=== PATIENT | male | born 1970 | race Caucasian/White ===

== ENCOUNTER 2019-09-06 06:00 | Outpatient (RCR) | payer OTHER, SELFPAY | END 2019-10-03 00:01 | LOC: SPT 06:00 | PROVIDERS: Family Provider Family Medicine; Visit Provider Orthopaedic Surgery | DX: Z47.89 Encounter for other orthopedic aftercare (principal) | CPT/HCPCS: 97110 ×2; 97140; 97161; G0283 ==

== ENCOUNTER 2019-10-04 10:09 | Outpatient (RCR) | payer OTHER, SELFPAY | END 2019-11-03 23:59 | disposition home or self-care (01) | LOC: SPT 10:09 | PROVIDERS: Family Provider Family Medicine; PCP Family Medicine; Visit Provider Orthopaedic Surgery | DX: S42.251D Displaced fracture of greater tuberosity of right humerus, subsequent encounter for fracture with routine healing (principal); X58.XXXD Exposure to other specified factors, subsequent encounter ==

== ENCOUNTER → 2020-09-23 15:55 | Outpatient (BNVA) | payer OTHER, SELFPAY | PROVIDERS: Family Provider Family Medicine; PCP Family Medicine; Visit Provider Nurse Practitioner Family | DX: Z20.828 Contact with and (suspected) exposure to other viral communicable diseases (principal) | CPT/HCPCS: 87635 ==

== ENCOUNTER → 2020-10-10 11:43 | Outpatient (BNVA) | payer OTHER, SELFPAY | PROVIDERS: Family Provider Family Medicine; PCP Family Medicine; Visit Provider Nurse Practitioner Family | DX: Z20.828 Contact with and (suspected) exposure to other viral communicable diseases (principal) | CPT/HCPCS: 87635 ==

== ENCOUNTER → 2020-10-18 09:32 | Outpatient (BNVA) | payer OTHER, SELFPAY | PROVIDERS: Family Provider Family Medicine; PCP Family Medicine; Visit Provider Family Medicine | DX: G47.00 Insomnia, unspecified (principal); R10.13 Epigastric pain; Z13.6 Encounter for screening for cardiovascular disorders | CPT/HCPCS: 80053; 80061; 84153; 85025 ==

== ENCOUNTER → 2020-11-15 08:09 | Outpatient (BNVA) | payer OTHER, SELFPAY | PROVIDERS: Family Provider Family Medicine; PCP Family Medicine; Visit Provider Family Medicine | DX: D53.9 Nutritional anemia, unspecified (principal); K21.9 Gastro-esophageal reflux disease without esophagitis; F51.04 Psychophysiologic insomnia; F17.229 Nicotine dependence, chewing tobacco, with unspecified nicotine-induced disorders | CPT/HCPCS: 82607 ==

== ENCOUNTER 2021-01-07 15:05 | Outpatient (CLI) | payer OTHER, SELFPAY ==
--- NOTE | 2021-01-07 15:23 | XR_ITS ---
WS: [id number] LEFT SHOULDER: 3 VIEW(S) TECHNIQUE: Internal and external rotation with Y view. HISTORY: acute left shoulder pain COMPARISON: None available. Osseous density along the posterior lateral humeral head may be from an old fracture or area of osteo necrosis. Glenohumeral and AC joints are unremarkable. Visualized LEFT upper lung is clear. XR/XR shoulder LT min 2V* [id number] IMPRESSION: Osseous density measuring 17 mm over the posterior lateral humeral head. Probab ly from an old injury.
== END 2021-01-07 15:06 | disposition home or self-care (01) ==
LOC: RADWPI 15:12
PROVIDERS: PCP Family Medicine; Visit Provider Family Medicine
DX: M25.512 Pain in left shoulder (principal)
CPT/HCPCS: 73030

== ENCOUNTER → 2021-02-14 08:03 | Outpatient (BNVA) | payer OTHER, SELFPAY | PROVIDERS: PCP Family Medicine; Visit Provider Orthopaedic Surgery | DX: S42.252A Displaced fracture of greater tuberosity of left humerus, initial encounter for closed fracture (principal); X58.XXXA Exposure to other specified factors, initial encounter | CPT/HCPCS: 73030 ==

== ENCOUNTER → 2021-05-01 08:24 | Outpatient (BNVA) | payer SELFPAY | PROVIDERS: PCP Family Medicine; Visit Provider Family Medicine | DX: R53.83 Other fatigue (principal); R68.82 Decreased libido | CPT/HCPCS: 84403; 84443 ==

== ENCOUNTER → 2021-08-20 11:40 | Outpatient (BNVA) | payer OTHER, SELFPAY | PROVIDERS: PCP Family Medicine; Visit Provider Orthopaedic Surgery | DX: S42.252D Displaced fracture of greater tuberosity of left humerus, subsequent encounter for fracture with routine healing (principal) | CPT/HCPCS: 73030 ==

== ENCOUNTER → 2021-10-11 12:12 | Outpatient (BNVA) | payer OTHER, SELFPAY | PROVIDERS: PCP Family Medicine; Visit Provider Family Medicine | DX: R05.9 Cough, unspecified (principal) | CPT/HCPCS: 87400; 87635 ==

== ENCOUNTER → 2021-10-21 10:28 | Outpatient (BNVA) | payer SELFPAY | PROVIDERS: PCP Family Medicine; Visit Provider Family Medicine | DX: Z13.6 Encounter for screening for cardiovascular disorders (principal); R10.13 Epigastric pain; R35.1 Nocturia; G25.0 Essential tremor; F41.9 Anxiety disorder, unspecified | CPT/HCPCS: 80053; 80061; 84153; 85025 ==

== ENCOUNTER 2022-01-08 11:06 | Day surgery (SDC) | payer SELFPAY ==
[2022-01-07 13:07] VITALS: BMI 25.1
[2022-01-08] VITALS (12 sets, daily range): BP systolic 113–146; BP diastolic 86–102; PULSE 53–77; RESP 14–20; TEMP 36.1–36.7; O2SAT 93–98
--- NOTE | 2022-01-08 11:43 | ANES.PREANE2 ---
Pre-Anesthetic Assessment Height/Weight: Height 1.8 m Weight 81.647 kg Preop Diagnosis: Labral tear left shoulder Operation Date: 01/08/22 13:10 Proposed Procedures p Diagnostic Shoulder Arthroscopy 59092/[id number](Left) - Mani Mauricio MD s SLAP Repair(Left) - Mani Mauricio MD Familial anesthetic complications: None Was Beta Tyrone taken within 24 hours: Yes Was Clonidine taken within 24 hours: N/A Last intake: 01/07/22 Social Tobacco (Chewing ) Exam alert, oriented x 3, clear to auscultation bilaterally and regular rate & rhythm Airway Submandibular: within normal limits Cervical ROM: within normal limits Mallampati: Class II Dentition: full Pulmonary None reported CV/HEM Anemia and Deep Vein Thrombosis Renal stones Hepatic None reported GI Gastroesophageal Reflux Disease Diverticulitis Metabolic None reported Musc/skel Osteoarthritis/DJD left arm pain Neuropsych Essential tremor Anesthetic Plan ASA status: 2 Anesthesia: General and Regional (specify below) (Brachial blexus block ) Other: We discussed risk and benefits of nerve block for post op pain control including management of pain and titration of pain medications as signs/symptoms of nerve block wearing off begin to appear and/or prior bed. We discussed risk of failed nerve block, vascular injury or other vital structure injury, abscess/infection, LAST, and nerve injury. We discussed risk and benefits of general anesthesia including PONV, sore throat (sometimes severe), corneal abrasion, positioning and peripheral nerve injuries, life threatening allergic reaction, post operative ICU admission requiring prolonged intubation, stroke, heart attack, , and rare incidences of recall. Patient consents to proceed with general anesthesia. Risk of > 500 ml blood loss (7ml/kg in children): No Medications/Allergies Home Medications Medication Instructions Recorded Confirmed Last Taken Type fexofenadine 180 mg tablet 180 mg PO DAILY 09/23/20 01/08/22 01/08/22 History (Chantel Allergy) apixaban 2.5 mg tablet (Eliquis) 2.5 mg PO BID 90 Days #180 tab 08/01/21 01/07/22 01/06/22 Rx omeprazole 40 mg capsule,delayed 40 mg PO DAILY cap 10/21/21 01/08/22 01/08/22 History release propranolol 10 mg tablet 10 mg PO BID #60 tab 10/21/21 01/08/22 01/08/22 Rx mirtazapine 15 mg tablet (Remeron) 15 mg PO .po q hs #90 tab 12/11/21 01/08/22 01/07/22 Rx Allergies Allergy/AdvReac Type Severity Reaction Status Date / Time Antihistamines - Alkylamine Allergy trouble Verified 12/30/21 09:26 urinating PFS Anesthesia Medical History Anxiety Essential tremor History of blood clots 3 total - he has had a hypercoag work-up which was negative. History of diverticulitis Insomnia Renal stones Surgical History H/O hernia repair History of shoulder surgery Right Hx of resection of large bowel Family History Mother Cancer Father Hypertension Diabetes Social History Smoking and tobacco status: current every day smoker (chewing tobacco daily) smokeless tobacco Smokeless tobacco user: chewing tobacco Alcohol intake: current Alcohol intake frequency: 3 or more drinks per day Alcohol type: beer and hard liquor History of recent travel: No Data Anesthesia Cardiac Studies: No Data to Display
[2022-01-08] MEDS: acetaminophen 500 mg Tablet 1000 MG PO (12:03)
[2022-01-08] MEDS: fentaNYL 50 mcg/mL INJ 2mL 100 MCG IVP (12:10)
--- NOTE | 2022-01-08 12:23 | P.ANES_ITS ---
Anesthesia Procedures Procedure/Date: 01/08/22 Nerve Block ^: Nerve Block 1: Main Anesthesia: general anesthesia Time Out Performed: Yes (1215) Consent: requested by attending/covering physician, from patient, risks and bene fits reviewed and patient agrees to proceed Nerve block location: supraclavicular Anesthesia monitors applied: pulse oximetry, EKG, BP cuff and oxygen Nerve block position: semi sitting Anesthetic Used: bupivacaine 0.5% Amount of anesthesia used (mL): 20 Ultrasound used to: recognize landmarks, visualize and ID brachial plexus and in supraclavicular region Nerve Stimulator Used?: No Interscalene/Femoral BLK: 2 stimuplex 22 g needle used for position and inplane approach, visualize local anesthetic spread and no vascular puncture identified Injection: neg aspiration of heme Patient Tolerated Procedure: well Complications: none Additional Comments: After time out sterile prep, using sterile technique, and using real time US guidance for target selection needle was inserted with real time visualization of needle entry and real time visualization of needle advancement toward intended target. Negative aspiration. LA injected incrementally with negative aspiration every 5 cc and real time US visualization of LA spread throughout procedure. Tolerated well. Image(s) saved. Pre procedure sedation used. Total 100 mcg fentanyl, 50 mcg prior to start, 50 mcg additional after needle insertion.
[2022-01-08] MEDS: sodium chloride 0.9% 1,000 ML 30 ML IV (12:34)
--- NOTE | 2022-01-08 15:18 | P.OP_ITS ---
Operative Report Date of procedure: January 08, 2022 Pre-op diagnosis: Preop Diagnosis Labral tear left shoulder Post-op diagnosis: other Post-op diagnosis: Partial-thickness tear left nursemaid's tendon, type II superior labral tear Procedure done: Arthroscopic repair left rotator cuff with bio inductive implant, open left biceps tenodesis, arthroscopic left subacromial decompression. Implants: Caban and NephMirada Regeneten bioinductive implant, 2.8 mm Q fix suture anchor Pathology: none sent Surgeon: Mani Mauricio Anesthesia: General Estimated blood loss (mL): 25 Complications: None Findings: Patient's left shoulder could be flexed 150 degrees and externally rotated 60 degrees identical to the contralateral side. Within the glenohumeral joint he had a unstable attachment of the superior labrum from approximately the 10:00 to the 2 o'clock position with some degeneration as well identified in the biceps tendon at its insertion. He had no chondromalacia of his humeral head or glenoid. He had a partial-thickness articular tear of his central supraspinatus tendon approximately a centimeter and a half from anterior to posterior with approximately a centimeter tendinous retraction. When inspected from the supe rior aspect the bursal rotator cuff appeared to be intact to probing. Procedure: Mr. Barnard was taken to the operating room and given 2 g of Ancef. Initially his left shoulder was brought through range of motion with the above findings noted, identical to the contralateral side. He was positioned in the lateral position with his left arm in 15 pounds of traction. He was prepped and draped in the usual fashion. A timeout was performed. The shoulder was entered through a posterior portal 2 cm inferior and medial to the posterior corner of the acromion. The glenohumeral joint was inspected. An anterior working portal was placed in the rotator interval. A probe through that interval allowed evaluation of the superior labrum which was noted to be torn. Decision was made to proceed with the biceps tenodesis. A spinal needle was introduced percutaneously laterally through the biceps tendon. A Prolene suture was passed through the biceps and secured to aid with later identification of the tendon. Using the Caban and Nephew Werewolf probe the biceps was released from the superior labrum/the articular tear of the rotator cuff was identified. A spinal needle was introduced percutaneously into the abnormal area cuff to allow localization on the bursal aspect.\ Arthroscopy equipment was then directed into the subacromial space. An anterior lateral working portal were made. Bursal tissue was removed with the Caban and Nephew Werewolf cautery. The bursal rotator cuff was inspected and found to be intact. Some anterior coverage of the acromion was identified as well. We made the decision to proceed with a subacromial decompression to a great vascularity around the anticipated Caban and Nephew Regeneten patch. Through the lateral portal approximately 4 mm of anterior and inferior acromion were removed. A more distal lateral incision was made and through that the Caban and Nephew Regeneten patch was passed. A more superior cannula was used to pass tendon giuseppe through the anterior and posterior medial apex and anterior and posterior midportion of the patch. Through the previous lateral cannula to bone giuseppe were placed 1 anterior and a second posterior laterally. Next a 3 cm long incision was made over the anterior axillary fold. Dissection was carried down bluntly to wear the bicipital groove was palpated. With retraction on the previous placed sutures the tendon could be identified. The biceps tendon was retracted into the wound. The bicipital groove was debrided to increase vascularity. A 2.8 mm Q fix anchor was placed and passed around the tendon in a luggage tag fashion. An additional Ultrabraid suture was passed around the tendon and around the substance of the pectoralis major reinforcing the repair. The tenodesis incision was closed with deep 2-0 Vicryl and superficial 3-0 Prolene. Portals were closed with 3-0 Prolene. The patient was placed in a sling, extubated, and taken to recovery room in stable condition.
--- NOTE | 2022-01-08 15:49 | SUR.PHASEI ---
1549 Pt complained of pain but declined any pain medication in PACU. Pt also voiced complaints of a little nausea but also declined anti emetic.
[2022-01-08] MEDS: ondansetron 2 mg/ML SDV 2 mL 4 MG IVP (15:59)
[2022-01-08] MEDS: ibuprofen 800 mg tablet PO (16:20)
--- NOTE | 2022-01-08 18:49 | ANE.PACU2 ---
Inpatient post-anesthesia follow up: Airway intact: Yes Vital signs: Temperature 97.3 F Pulse Rate 68 Respiratory Rate 18 Blood Pressure 131/98 Pulse Oximetry 96 Oxygen Delivery Me thod Room Air Oxygen Flow Rate 6 Fraction of Inspir ed Oxygen Hydration adequate: Yes Nausea and vomiting: No Pain level: 1 Mental status: Baseline
--- NOTE | 2022-01-11 09:04 | W.PM.OPSUD ---
Surgery/Procedure H&P Update DATE OF PROCEDURE: January 08, 2022 DATE H&P PERFORMED: 12/30/21 H&P UPDATE INFORMATION: I have reviewed H&P completed within last 30 days PREOP DIAGNOSIS: Labral tear left shoulder PLANNED PROCEDURE: Operation Date: 01/08/22 13:10 Proposed Procedures p Diagnostic Shoulder Arthroscopy [id number](Left) - Mani Mauricio MD s SLAP Repair(Left) - Mani Mauricio MD
== END 2022-01-08 17:15 | disposition home or self-care (01) ==
PROVIDERS: PCP Family Medicine; Visit Provider Orthopaedic Surgery
PROC: (CPT 29805; principal; 2022-01-08 13:00)
PROC: (CPT 29807; 2022-01-08 13:00)
DX: S43.402A Unspecified sprain of left shoulder joint, initial encounter (principal); S43.432A Superior glenoid labrum lesion of left shoulder, initial encounter; X58.XXXA Exposure to other specified factors, initial encounter; M67.912 Unspecified disorder of synovium and tendon, left shoulder; Z87.891 Personal history of nicotine dependence; Z86.718 Personal history of other venous thrombosis and embolism; K21.9 Gastro-esophageal reflux disease without esophagitis; F41.9 Anxiety disorder, unspecified
CPT/HCPCS: 29826; 29827; 29828; C1713; J0690; J1100; J2405; J2704; J3010; J3490; J7030

== ENCOUNTER 2022-04-02 06:00 | Outpatient (RCR) | payer SELFPAY | END 2022-04-02 23:55 | disposition home or self-care (01) | LOC: SPT 06:00 | PROVIDERS: PCP Family Medicine; Referring Provider Orthopaedic Surgery; Visit Provider Orthopaedic Surgery | DX: Z47.89 Encounter for other orthopedic aftercare (principal); M25.512 Pain in left shoulder | CPT/HCPCS: 97161 ==

== ENCOUNTER 2022-04-03 06:00 | Outpatient (RCR) | payer SELFPAY | END 2022-05-03 23:59 | disposition home or self-care (01) | LOC: SPT 06:00 | PROVIDERS: PCP Family Medicine; Referring Provider Orthopaedic Surgery; Visit Provider Orthopaedic Surgery | DX: Z47.89 Encounter for other orthopedic aftercare (principal) | CPT/HCPCS: 97110; 97140 ==

== ENCOUNTER → 2022-04-17 10:25 | Outpatient (BNVA) | payer SELFPAY | PROVIDERS: PCP Family Medicine; Visit Provider Family Medicine | DX: D53.9 Nutritional anemia, unspecified (principal); F41.9 Anxiety disorder, unspecified | CPT/HCPCS: 82607; 85025 ==

== ENCOUNTER 2022-05-04 06:00 | Outpatient (RCR) | payer SELFPAY | END 2022-05-15 13:32 | disposition home or self-care (01) | LOC: SPT 06:00 | PROVIDERS: PCP Family Medicine; Visit Provider Orthopaedic Surgery | DX: Z47.89 Encounter for other orthopedic aftercare (principal) | CPT/HCPCS: 97032; 97110 ==

== ENCOUNTER → 2022-08-21 09:48 | Outpatient (BNVA) | payer SELFPAY | PROVIDERS: PCP Family Medicine; Visit Provider Family Medicine | DX: Z13.6 Encounter for screening for cardiovascular disorders (principal); F41.9 Anxiety disorder, unspecified; R53.83 Other fatigue; I82.409 Acute embolism and thrombosis of unspecified deep veins of unspecified lower extremity | CPT/HCPCS: 80053; 80061 ==

== ENCOUNTER 2022-11-27 10:31 | Outpatient (CLI) | payer SELFPAY ==
--- NOTE | 2022-11-27 10:40 | XR_ITS ---
WS: [id number] Exam: XR hip RT 2-3V wo/w pel* [id number] Date/Time of Exam: 11/27/2022 10:49 AM Reason For Exam: right hip pain No fracture or dislocation. The joint compartment relatively well maintained. Normal soft tissues. Fernandez rgical clips in the pelvis as well as the right inguinal region. Mild bony hypertrophy of the superio r acetabulum. XR/XR hip RT 2-3V wo/w pel* [id number] IMPRESSION: 1. No fracture or other significant finding.
== END 2022-11-27 10:32 | disposition home or self-care (01) ==
PROVIDERS: PCP Family Medicine; Visit Provider Family Medicine
DX: M25.551 Pain in right hip (principal)
CPT/HCPCS: 73502

== ENCOUNTER → 2022-12-29 08:09 | Outpatient (BNVA) | payer SELFPAY | PROVIDERS: PCP Family Medicine; Visit Provider Family Medicine | DX: K92.1 Melena (principal) | CPT/HCPCS: 85025 ==

== ENCOUNTER 2023-01-21 08:37 | Outpatient (CLI) | payer BC, SELFPAY ==
--- NOTE | 2023-01-21 08:45 | USCV_ITS ---
Bjorn Patel Age: 52 Gender: M : 1970 Exam Date: 01/21/2023 08:52 Ordering Phys: Bailee Shafer DO Technologist: Rin Bull Exam Location: [facility] [place] Indication: History of DVT in both Rt and Lt legs HISTORY: History of DVT in Rt and Lt lower extermities PROCEDURES: Venous duplex imaging was performed in only the right lower extremity. The following venous structures were evaluated: common femoral vein, profunda vein, proximal portion of the greater saphenous vein, superficial femoral vein, and the popliteal vein. In addition, the posterior tibial and peroneal trunk were evaluated. Serial compression, augmentation maneuvers, and spectral Doppler flow evaluation were performed. FINDINGS: Normal 2-D Doppler and augmentation and compressibility throughout the lower extremity venous structures. Additional imaging through the proximal calf veins also reveals no thrombus. Limited evaluation of the greater saphenous vein is patent with no thrombus. The supervision of waiting on the medial aspect of the right leg with an echogenic strand suggesting old superficial thrombophlebitis with recanalization CONCLUSIONS No evidence of DVT in the above-mentioned identifiable veins. The superficial vessel on the medial side of the right lower leg- firm and bluish, appears to be having features of old thrombophlebitis with recanalization. Dr Tj Garcia MD [facility] (Electronically Signed) Final Date: 23 January 2023 14:09 S
== END 2023-01-21 08:38 | disposition home or self-care (01) ==
PROVIDERS: PCP Family Medicine; Visit Provider Family Medicine
DX: I82.409 Acute embolism and thrombosis of unspecified deep veins of unspecified lower extremity (principal); Z86.718 Personal history of other venous thrombosis and embolism
CPT/HCPCS: 93971

== ENCOUNTER → 2023-02-25 09:11 | Outpatient (BNVA) | payer BC, SELFPAY | PROVIDERS: PCP Family Medicine; Visit Provider Nurse Practitioner Family | DX: R39.9 Unspecified symptoms and signs involving the genitourinary system (principal) | CPT/HCPCS: 81000 ==

== ENCOUNTER 2023-07-02 07:49 | Outpatient (CLI) | payer BC, SELFPAY ==
--- NOTE | 2023-07-02 08:01 | XR_ITS ---
WS: [id number] Lumbar spine, 3 views, 07/02/2023 Clinical Data: low back pain Comparison: None. Findings: No compression fractures or subluxation is seen. There is degenerative disc narrowing at L5-S1. There are anterior osteophytes at this level. The transverse processes and SI joints are normal. There are surgical clips in the inguinal regions bilaterally. Impression: Degenerative disc narrowing at L5-S1 with anterior osteophytes.
== END 2023-07-02 07:50 | disposition home or self-care (01) ==
LOC: LAB 07:51 → RAD 07:57
PROVIDERS: PCP Family Medicine; Visit Provider Family Medicine
DX: G89.29 Other chronic pain (principal); M54.41 Lumbago with sciatica, right side
CPT/HCPCS: 72100

== ENCOUNTER 2023-09-09 06:51 | Outpatient (CLI) | payer BC, SELFPAY ==
--- NOTE | 2023-09-09 07:15 | MR_ITS ---
WS: [id number] MRI LUMBAR SPINE NONCONTRAST TECHNIQUE: Sagittal T1, T2 and STIR imaging. Axial T1 and T2 imaging. CLINICAL INFORMATION: chronic right sided low back pain COMPARISON: None. FINDINGS: Mild lumbar curve. No acute compression. No high-grade central canal stenosis. L1-L2: Normal. L2-L3: Normal. L3-L4: Mild annular bulging. Mild facet arthropathy. Spinal canal and foramen are patent. L4-L5: Mild annular bulging. Mild LEFT and no significant RIGHT foraminal narrowing. Mild facet arthr opathy. Spinal canal is patent. L5-S1: Mild annular bulging with slight effacement of the ventral thecal sac. Mild to moderate bilate ral bony foraminal narrowing LEFT greater than RIGHT. Visualized pelvic bony structures: Normal. Paravertebral soft tissues: Normal. IMPRESSION: 1. Mild lumbar curve. No acute compression. No high-grade central canal stenosis. 2. Mild annular bulging L4-5 with slight effacement of the ventral thecal sac. 3. Mild to moderate bilateral L5-S1 foraminal narrowing with LEFT greater than RIGHT small foraminal protrusions. Mild to moderate facet arthropathy L3-L5. 4. Small LEFT renal cyst partially visualized 1.9 cm.
== END 2023-09-09 06:52 | disposition home or self-care (01) ==
LOC: RAD 06:51
PROVIDERS: PCP Family Medicine; Visit Provider Family Medicine
DX: M51.36 Other intervertebral disc degeneration, lumbar region (principal); M48.061 Spinal stenosis, lumbar region without neurogenic claudication; G89.29 Other chronic pain
CPT/HCPCS: 72148

== ENCOUNTER → 2023-09-28 09:05 | Outpatient (BNVA) | payer BC, SELFPAY | PROVIDERS: PCP Family Medicine; Referring Provider Family Medicine; Visit Provider Orthopaedic Surgery | DX: M48.062 Spinal stenosis, lumbar region with neurogenic claudication (principal); Z01.818 Encounter for other preprocedural examination | CPT/HCPCS: 36415; 80053; 81003; 85025 ==

== ENCOUNTER → 2023-10-26 14:35 | Outpatient (BNVA) | payer BC, SELFPAY | PROVIDERS: PCP Family Medicine; Visit Provider Family Medicine | DX: Z01.818 Encounter for other preprocedural examination (principal) | CPT/HCPCS: 80053; 81003; 85025 ==

== ENCOUNTER 2023-11-03 07:50 | Day surgery (SDC) | payer BC, SELFPAY ==
[2023-11-03] VITALS (10 sets, daily range): BP systolic 134–159; BP diastolic 88–102; PULSE 58–77; RESP 16; TEMP 36.1–37.1; O2SAT 97–100
[2023-11-03] MEDS: sodium chloride 0.9% 1,000 ML 30 ML IV (08:17)
--- NOTE | 2023-11-03 09:40 | W.PM.OPSUD ---
Surgery/Procedure H&P Update DATE OF PROCEDURE: November 03, 2023 DATE H&P PERFORMED: 10/26/23 H&P UPDATE INFORMATION: I have reviewed H&P completed within last 30 days, I have examined patient prior to procedure and No changes to prior documentation PREOP DIAGNOSIS: Lumbar stenosis with neurogenic claudication PLANNED PROCEDURE: Operation Date: 11/03/23 09:35 Proposed Procedures p Lumbar Decompression(L4/5)(Not Applicable) - Colin Goyal DO
[2023-11-03] MEDS: ceFAZolin 2,000 MG in sodium chloride 0.9% (plus) 50 ML 100 MG IV (10:05)
--- NOTE | 2023-11-03 10:05 | ANES.PREANE2 ---
Pre-Anesthetic Assessment Height/Weight: Height 1.8 m Temp Pulse Resp BP Pulse Ox O2 Del Method 98.7 F 60 16 140/92 100 Room Air 11/03/23 08:01 11/03/23 08:01 11/03/23 08:01 11/03/23 08:01 11/03/23 08:01 11/03/23 08:04 Preop Diagnosis: Lumbar stenosis with neurogenic claudication Operation Date: 11/03/23 09:35 Proposed Procedures p Lumbar Decompression(L4/5)(Not Applicable) - Colin Goyal, DO Familial anesthetic complications: None Was Beta Tyrone taken within 24 hours: N/A Was Clonidine taken within 24 hours: N/A Last intake: Intake Last Liquid Date 11/03/23 Last Liquid Time 17:00 Last Solid Date 11/02/23 Last Solid Time 17:00 Social Tobacco and No alcohol Exam alert, oriented x 3, clear to auscultation bilaterally and regular rate & rhythm Airway Mallampati: Class II Dentition: chipped and full CV/HEM Deep Vein Thrombosis and Hypertension GI Gastroesophageal Reflux Disease Anesthetic Plan ASA status: 3 Anesthesia: General Risk of > 500 ml blood loss (7ml/kg in children): No Medications/Allergies Home Medications Medication Instructions Recorded Confirmed Last Taken Type propranolol 60 mg capsule,24 60 mg PO DAILY #90 caps 06/14/23 11/02/23 11/03/23 Rx hr,extended release bupropion HCl 150 mg 24 hr tablet, 150 mg PO QAM #90 tabs 08/10/23 11/02/23 11/03/23 Rx extended release mirtazapine 30 mg tablet 30 mg PO DAILY #90 tabs 08/10/23 11/02/23 11/02/23 Rx apixaban 2.5 mg tablet (Eliquis) 2.5 mg PO BID 11/02/23 11/02/23 10/31/23 History atorvastatin 20 mg tablet 20 mg PO DAILY 11/02/23 11/02/23 11/02/23 History omeprazole 40 mg capsule,delayed 40 mg PO DAILY 11/02/23 11/02/23 11/03/23 History release tizanidine 4 mg tablet 4 mg PO 3XD PRN Muscle Spasm 11/02/23 11/02/23 Unknown History Allergies Allergy/AdvReac Type Severity Reaction Status Date / Time Antihistamines - Alkylamine Allergy trouble Verified 11/02/23 10:22 urinating Current Medications Generic Name Dose Route Start Last Admin Trade Name Chuck PRN Reason Stop Dose Admin Sodium Chloride 1,000 mls @ 30 mls/hr 11/03/23 08:00 11/03/23 08:17 Sodium Chloride 0.9% IV 11/04/23 07:59 30 mls/hr .Q24H CHULA Administration PFSH Anesthesia Medical History Acute bronchitis and bronchiolitis Allergic rhinitis Anxiety History of blood clots 3 total - he has had a hypercoag work-up which was negative. History of diverticulitis Essential tremor Insomnia Renal stones Surgical History H/O hernia repair History of shoulder surgery Right Hx of resection of large bowel Family History Mother Cancer Father Hypertension Diabetes Social History Smoking and tobacco/nicotine status: current every day tobacco/nicotine user smokeless tobacco Smokeless tobacco user: chewing tobacco Alcohol intake: current Alcohol intake frequency: 3 or more drinks per day Alcohol type: beer and hard liquor Substance/Drug Use: never Data Anesthesia Cardiac Studies: No Data to Display
[2023-11-03] MEDS: thrombin 5,000 unit SDV 5000 UNIT XX (10:36)
[2023-11-03] MEDS: lidocaine-epi 1% 20 mL INJ INJECTION (10:38)
--- NOTE | 2023-11-03 11:08 | PM.OP ---
Operative Report Date of procedure: November 03, 2023 Pre-op diagnosis: Lumbar stenosis with neurogenic claudication Post-op diagnosis: same Procedure done: Right L4-5 laminectomy with partial facetectomy Surgeon: Colin Goyal DO Estimated blood loss (mL): 5 Procedure: Right L4-5 laminectomy with partial facetectomy Patient is brought to the operative suite. After undergoing anesthesia they are placed in the prone position. All areas of impingement are well padded. Patient is then prepped and draped in the normal sterile fashion. A skin incision is made over the L4-5 level. This is confirmed under c-arm guidance. A series of dilators are passed and the tubular retractor is docked on the L4 lamina. A bovie is used to clear the soft tissue off the lamina and the L 4/5 facet joint. A high speed ammy is then used to perform the laminectomy and take down the medial aspect of the L 4/5 facet joint. A kerrison rongeure was then used to take down the remaining lamina and smooth the edge of the laminectomy up to the point where the ligamentum flavum attaches. Attention was then brought to the medial aspect of the facet joint. The remaining medial aspect of the superior and inferior aspect of the facet joint were taken down with the kerrison from the pedicle of L4 to L 5. The facet joint had significant hypertrophy. Attention was then brought to the Ligamentum Flavum. The ligament was taken down from the lamina of L4 to L5 and out medially to the remaining facet joint. The ligament was thick. The dura was then exposed. The dura was in good repair. The L4 nerve was then traced with a curette out the L4/5 foramen and found to be adequately decompressed. The L5 nerve was traced with a curette around the L5 pedicle. The lateral recess was opened with a kerrison helping to further decompress the L5 nerve. Wound is then irrigated copiously with saline and surgiflo is used to stop any bleeding. The tubular retractor is removed and the wound is closed with vicryl and monocryl suture. Glue is then used to protect the wound. A sterile dressing is then placed. Patient was then placed in the supine position and transferred to the PACU in stable condition.
[2023-11-03] MEDS: fentaNYL 50 mcg/mL INJ 2mL IVP (11:10)
[2023-11-03] MEDS: HYDROcodone-acetaminophen 5-325 mg Tablet 2 TAB PO (11:43)
--- NOTE | 2023-11-03 12:24 | PC.NURSE ---
went to give patient dilaudid for pain. Parient refused do to history of making him sick.
--- NOTE | 2023-11-03 12:50 | ANE.PACU2 ---
Inpatient post-anesthesia follow up: Airway intact: Yes Vital signs: Temperature 98 F Pulse Rate 60 Respiratory Rate 16 Blood Pressure 142/96 Pulse Oximetry 100 Oxygen Delivery Me thod Room Air Oxygen Flow Rate Fraction of Inspir ed Oxygen Hydration adequate: Yes Nausea and vomiting: No Pain level: 1 Mental status: Baseline
--- NOTE | 2023-11-04 | XR_ITS ---
WS: [id number] Lumbar spine, C-arm fluoroscopy views, 11/03/2023 Clinical Data: lumbar decompression Comparison: Lumbar spine, 07/02/2023 Findings: Dr. Goyal performed a lumbar decompression. Impression: Lumbar decompression.
== END 2023-11-03 12:51 | disposition home or self-care (01) ==
PROVIDERS: PCP Family Medicine; Visit Provider Orthopaedic Surgery
PROC: (CPT 63005; principal; 2023-11-03 09:25)
DX: M48.062 Spinal stenosis, lumbar region with neurogenic claudication (principal); Z86.718 Personal history of other venous thrombosis and embolism; I10 Essential (primary) hypertension; K21.9 Gastro-esophageal reflux disease without esophagitis; F17.200 Nicotine dependence, unspecified, uncomplicated
CPT/HCPCS: 63047; 72020; 76000; J0690; J1170; J2250; J2704; J2710; J3010; J3490; J7030

== ENCOUNTER → 2024-09-05 11:03 | Outpatient (BNVA) | payer BC, SELFPAY | PROVIDERS: PCP Family Medicine Adult Medicine; Visit Provider Orthopaedic Surgery | DX: M48.062 Spinal stenosis, lumbar region with neurogenic claudication (principal) | CPT/HCPCS: 72100 ==

== ENCOUNTER → 2025-03-05 15:53 | Outpatient (BNVA) | payer BC, SELFPAY | PROVIDERS: PCP Family Medicine; Visit Provider Family Medicine | DX: K62.5 Hemorrhage of anus and rectum (principal) | CPT/HCPCS: G0328 ==

== ENCOUNTER → 2025-03-20 16:16 | Outpatient (BNVA) | payer BC, SELFPAY | PROVIDERS: PCP Family Medicine; Visit Provider Family Medicine | DX: Z12.5 Encounter for screening for malignant neoplasm of prostate (principal); E78.5 Hyperlipidemia, unspecified | CPT/HCPCS: 80053; 80061; 85025; G0103 ==